=== PATIENT | female | born 1945 | race Caucasian/White ===

== ENCOUNTER 2018-10-27 14:56 | Observation (INO) ==
[2018-10-27] MEDS ORDERED: Famotidine PF Inj 20 MG/2 ML Vial IV.PUSH ONE (15:26)
[2018-10-27] MEDS ORDERED: Morphine Inj 4 MG/ML Vial IV.PUSH ONE (15:26)
[2018-10-27] MEDS ORDERED: Sod Chloride 0.9% Inj 1,000 ML IV.CONT SCH (15:30)
--- NOTE | 2018-10-27 15:31 | ED ---
HPI General Chief Complaint: Abdominal Pain Stated Complaint: Gallbladder Complaint Time Seen by Provider: 10/27/18 15:26 Source: patient Mode of arrival: ambulatory Limitations: no limitations History of Present Illness HPI narrative: The patient is a 73-year-old female who presents to the emergency department for abdominal. The patient states her symptoms started last night after she ate quesadillas and was walking in the cold air to performance at the local college. The patient states the pain is located in the epigastrium and radiates to the flanks and the back. The pain is constant, persistent, sharp, worse when she inhales cold air. The patient does complain of mild nausea, feeling "clammy ", and burping. The patient believes her gallbladder is inflamed. The patient states she had a similar episode 2 years ago and they thought it was cardiac, she had a cardiac catheterization which was negative per her report. The patient does have a previous history of hysterectomy, bilateral mastectomy, but denies any history of known gallstones or pancreatitis. The patient denies any associated dysuria, frequency, or urgency. The pain does occasionally radiate from the epigastrium up into the lower chest as well as the back. The patient denies any accompanying shortness of breath or cough. Symptoms are moderate to severe and constant. There are no current alleviating factors. MD complaint: Reports abdominal pain Onset (ago): day(s) Pain Consistency: constant Location: Reports RUQ and epigastric Severity: severe Severity scale (1-10): 8 Quality: Reports sharp Radiation: Reports back Migration to: Reports L flank and R flank Relieving factors: nothing Exacerbating factors: other Context: Reports history of similar episodes Associated symptoms: Reports nausea and other Related Data Patient : No Allergies Allergy/AdvReac Type Severity Reaction Status Date / Time amlodipine Allergy Mild unknown Verified 10/27/18 15:26 atorvastatin Allergy Mild unknown Verified 10/27/18 15:26 pravastatin Allergy Mild unknown Verified 10/27/18 15:26 scopolamine Allergy Mild Agitation Verified 10/27/18 15:26 simvastatin Allergy Mild unknown Verified 10/27/18 15:26 Review of Systems ROS: all other systems reviewed are negative [facility] Medical History Medical History Arthritis (Acute) COPD (chronic obstructive pulmonary disease) (Acute) Chronic fibrocystic breast disease (FCBD) in female (Acute) GERD (gastroesophageal reflux disease) (Acute) H/O: hysterectomy (Acute) Hypercholesterolemia (Acute) Surgical History Surgical History S/P mastectomy, bilateral (Acute) Social History Social History Substance History: No History of Abuse Smoking Status: Former smoker How Often Do You Have a Drink Containing Alcohol: Monthly or less Recent Travel in [facility] within the Last 8 Weeks: No Recent Out of Country Travel within the Last 8 Weeks: No Exam Narrative Exam Narrative: GENERAL: Awake, alert, pleasant 73-year-old female who appears her stated age and appears in moderate discomfort. SKIN: Focused skin assessment warm/dry. HEAD: Atraumatic. Normocephalic. EYES: Pupils equal and round. No scleral icterus. No injection or drainage. ENT: No nasal bleeding or discharge. Mucous membranes pink and moist. NECK: Trachea midline. No JVD. CARDIOVASCULAR: Regular rate and rhythm. No murmur appreciated. RESPIRATORY: No accessory muscle use. Clear to auscultation. Breath sounds equal bilaterally. GASTROINTESTINAL: Abdomen soft, mild epigastric and right upper quadrant tenderness. No guarding or rigidity. Back: No CVA tenderness. MUSCULOSKELETAL: No obvious deformities. No clubbing. No cyanosis. No edema. NEUROLOGICAL: Awake and alert. No obvious cranial nerve deficits. Motor grossly within normal limits. Normal speech. PSYCHIATRIC: Appropriate mood and affect; insight and judgment normal. Course Initial Documented Vital Signs Temperature 97.5 F L 10/27/18 15:07 Pulse Rate 63 10/27/18 15:07 Respiratory Rate 20 10/27/18 15:07 Blood Pressure 225/98 H 10/27/18 15:07 Pulse Oximetry 98 10/27/18 15:07 Last Documented Vital Signs Temperature 97.5 F L 10/27/18 15:07 Pulse Rate 66 10/27/18 19:40 Respiratory Rate 16 10/27/18 19:40 Blood Pressure 136/63 10/27/18 19:40 Pulse Oximetry 96 10/27/18 19:40 Medical Decision Making [facility] Narrative Medical decision making narrative: IV was established, labs are drawn and sent, and the patient was placed on cardiac telemetry monitoring and continuous pulse oximetry monitoring. EKG was ordered and interpreted. Chest x-ray was obtained. The patient received morphine, Zofran, and was placed on IV fluids. Ultrasound of the gallbladder was obtained. The patient was kept n.p.o. The patient's last meal was at 10 AM, breakfast. The patient's EKG was unremarkable , reveals normal sinus rhythm with no signs of depressions. Patient's lipase is normal. Chest x-ray was unremarkable. However, patient's troponin was elevated at 2.34. The patient was administered aspirin orally. The patient was placed on a heparin drip. The patient was reevaluated at 7:30 PM, her pain had resolved and blood pressure had improved to 130/80s. The patient will be admitted to the [facility], may benefit from cardiology evaluation. The patient states she had a negative cath several years ago after similar symptoms, however, troponin is elevated, possibly Prinzmetal angina versus hypertensive emergency. Medical Screen Exam Complete: Yes Emergency Medical Condition: Yes Differential Diagnosis Differential Diagnosis: Differential diagnosis includes cholecystitis, biliary colic, pancreatitis, gastritis, peptic ulcer disease, esophageal spasm, abdominal aortic aneurysm, dissection, pyelonephritis, nephrolithiasis, lower lobe pneumonia. Lab Data Lab results reviewed: Yes I reviewed the patient's lab results. Result diagrams: 10/27/18 17:35 10/27/18 17:35 Lab Results 10/27/18 10/27/18 10/27/18 Range/Units 17:35 17:35 17:35 WBC 8.9 (4.0-11.0) th/mm3 RBC 3.92 L (4.00-5.30) mil/mm3 Hgb 12.7 (11.6-15.3) gm/dL Hct 36.6 (35.0-46.0) % MCV 93.4 (80.0-100.0) fL MCH 32.4 (27.0-34.0) pg MCHC 34.7 (32.0-36.0) % RDW 12.9 (11.6-17.2) % Plt Count 259 (150-450) th/mm3 MPV 9.3 (7.0-11.0) fL Neut % (Auto) 82.4 H (16.0-70.0) % Lymph % (Auto) 12.9 (9.0-44.0) % [place] % (Auto) 3.3 (0.0-8.0) % Eos % (Auto) 0.8 (0.0-4.0) % Baso % (Auto) 0.6 (0.0-2.0) % Neut # (Auto) 7.3 (1.8-7.7) th/mm3 Lymph # (Auto) 1.1 (1.0-4.8) th/mm3 [place] # (Auto) 0.3 (0.0-0.9) th/mm3 Eos # (Auto) 0.1 (0.0-0.4) th/mm3 Baso # (Auto) 0.1 (0.0-0.2) th/mm3 WBC Differential . Differential Comment Auto diff final PT 10.7 (9.8-11.6) sec INR 1.1 Ratio APTT 24.3 (23.4-31.7) sec Sodium 139 (136-145) meq/L Potassium 4.7 (3.5-5.1) meq/L Chloride 104 (98-107) meq/L Carbon Dioxide 27.8 (21.0-32.0) meq/L Anion Gap 7 (5-15) meq/L BUN 27 H (7-18) mg/dL Creatinine 1.06 H (0.50-1.00) mg/dL Estimated GFR 51 L (>89) mL/min Random Glucose 107 H (74-106) mg/dL Lactic Acid (0.4-2.0) mmol/L Calcium 8.6 (8.5-10.1) mg/dL Magnesium 1.8 (1.5-2.5) mg/dL Total Bilirubin 0.7 (0.2-1.0) mg/dL AST 46 H (15-37) U/L ALT 29 (10-53) U/L Alkaline Phosphatase 80 (45-117) U/L Total Creatine Kinase 269 H (26-192) U/L CK-MB (CK-2) 14.2 H (0.5-3.6) ng/mL CK-MB (CK-2) % 5.3 H* (0.0-4.0) % Troponin I 2.34 H* (0.02-0.05) ng/mL Total Protein 7.6 (6.4-8.2) g/dL Albumin 3.9 (3.4-5.0) g/dL Lipase 132 (73-393) U/L 10/27/18 Range/Units 17:35 WBC (4.0-11.0) th/mm3 RBC (4.00-5.30) mil/mm3 Hgb (11.6-15.3) gm/dL Hct (35.0-46.0) % MCV (80.0-100.0) fL MCH (27.0-34.0) pg MCHC (32.0-36.0) % RDW (11.6-17.2) % Plt Count (150-450) th/mm3 MPV (7.0-11.0) fL Neut % (Auto) (16.0-70.0) % Lymph % (Auto) (9.0-44.0) % [place] % (Auto) (0.0-8.0) % Eos % (Auto) (0.0-4.0) % Baso % (Auto) (0.0-2.0) % Neut # (Auto) (1.8-7.7) th/mm3 Lymph # (Auto) (1.0-4.8) th/mm3 [place] # (Auto) (0.0-0.9) th/mm3 Eos # (Auto) (0.0-0.4) th/mm3 Baso # (Auto) (0.0-0.2) th/mm3 WBC Differential Differential Comment PT (9.8-11.6) sec INR Ratio APTT (23.4-31.7) sec Sodium (136-145) meq/L Potassium (3.5-5.1) meq/L Chloride (98-107) meq/L Carbon Dioxide (21.0-32.0) meq/L Anion Gap (5-15) meq/L BUN (7-18) mg/dL Creatinine (0.50-1.00) mg/dL Estimated GFR (>89) mL/min Random Glucose (74-106) mg/dL Lactic Acid 0.6 (0.4-2.0) mmol/L Calcium (8.5-10.1) mg/dL Magnesium (1.5-2.5) mg/dL Total Bilirubin (0.2-1.0) mg/dL AST (15-37) U/L ALT (10-53) U/L Alkaline Phosphatase (45-117) U/L Total Creatine Kinase (26-192) U/L CK-MB (CK-2) (0.5-3.6) ng/mL CK-MB (CK-2) % (0.0-4.0) % Troponin I (0.02-0.05) ng/mL Total Protein (6.4-8.2) g/dL Albumin (3.4-5.0) g/dL Lipase (73-393) U/L Imaging Data Radiologist's impression: Chest X-Ray 10/27/18 15:26 CONCLUSION: Stable chest appearance with no definite acute disease Gallbladder Ultrasound 10/27/18 15:26 CONCLUSION: 1. Cholelithiasis without definitive sonographic evidence for acute cholecystitis. 2. Nonspecific marginal pancreatic duct size. Abdomen/Pelvis CT 10/27/18 16:32 CONCLUSION: 1. Atherosclerotic changes in the aorta with dilatation and calcification. There is no focal aneurysm. 2. Moderate size apparent duodenal diverticulum containing an area of high density material. 3. Unremarkable gallbladder. 4. Moderate size retrocardiac hiatal hernia. 5. Grade 1 anterior spondylolisthesis of L4 on L5. ECG Data EKG Prior to Arrival: No Attestation: I personally reviewed and interpreted this ECG as follows: Interpretation: EKG reveals normal sinus rhythm with a rate of 75. No ischemic changes or ectopy noted. Discharge Plan Discharge Disposition Patient Disposition: 30 Still Patient Discharge Details Diagnosis: Non-ST elevation [place] (NSTEMI) Physicians Team ED Provider: Candido Knight Primary Care Provider: Nina King Status ED Status: Pending Admission
--- NOTE | 2018-10-27 16:19 | XR ---
EXAM DATE: 10/27/2018 4:05 PM EST AGE/SEX: 73 years / Female INDICATIONS: Chest pain. Right upper quadrant pain. CLINICAL DATA: This is the patient's initial encounter. Patient reports that signs and symptoms have been present for 1 day and indicates a pain score of 3/10. MEDICAL/SURGICAL HISTORY: None. None. COMPARISON: [facility] [place], CHEST SINGLE AP, 11/17/2015. . FINDINGS: A single AP view of the chest demonstrates the lungs to be symmetrically aerated without evidence of mass, infiltrate or effusion. The cardiomediastinal contours are unremarkable. Osseous structures a re intact. CONCLUSION: Stable chest appearance with no definite acute disease Electronically signed by: Jarrett Dotson MD 10/27/2018 4:18 PM EST
--- NOTE | 2018-10-27 16:32 | US ---
EXAM DATE: 10/27/2018 4:27 PM EST AGE/SEX: 73 years / Female INDICATIONS: Right upper quadrant pain. CLINICAL DATA: This is the patient's initial encounter. Patient reports that signs and symptoms have been present for 2 days and indicates a pain score of 6/10. MEDICAL/SURGICAL HISTORY: Chronic obstructive pulmonary disease. Gastroesophageal reflux disea se. Arthritis. FCBD. Hypercholesterolemia. Hysterectomy. Bilateral mastectomy. COMPARISON: No prior exams available for comparison. MEASUREMENTS: Liver:__ 15 cm. Common Bile Duct:__ 6mm. FINDINGS: Liver: Normal echotexture without focal lesion or ductal dilatation. Portal Vein: Hepatopedal flow seen in portal vein. Common Duct: No intraluminal mass or stone visualized. Gallbladder: 1.2 cm echogenic gallstone in the gallbladder. Gallbladder otherwise is mildly distende d without gallbladder wall thickening or pericholecystic fluid. No sonographic Amin sign. Pancreas: Mildly prominent pancreatic duct. Right Kidney: Normal echotexture and cortical thickness. No mass or hydronephrosis. Other: None. CONCLUSION: 1. Cholelithiasis without definitive sonographic evidence for acute cholecystitis. 2. Nonspecific marginal pancreatic duct size. Electronically signed by: Antonio Pelayo MD 10/27/2018 4:30 PM EST
[2018-10-27 17:56] LABS: Baso # (Auto) 0.1 th/mm3 (0.0-0.2); Baso % (Auto) 0.6 % (0.0-2.0); Eos # (Auto) 0.1 th/mm3 (0.0-0.4); Eos % (Auto) 0.8 % (0.0-4.0); Hematocrit 36.6 % (35.0-46.0); Hemoglobin 12.7 gm/dL (11.6-15.3); Lymph # (Auto) 1.1 th/mm3 (1.0-4.8); Lymph % (Auto) 12.9 % (9.0-44.0); Mean Corpuscular HGB Conc 34.7 % (32.0-36.0); Mean Corpuscular Hemoglobin 32.4 pg (27.0-34.0); Mean Corpuscular Volume 93.4 fL (80.0-100.0); Mean Platelet Volume 9.3 fL (7.0-11.0); Mono # (Auto) 0.3 th/mm3 (0.0-0.9); Mono % (Auto) 3.3 % (0.0-8.0); Neut # (Auto) 7.3 th/mm3 (1.8-7.7); Neut % (Auto) 82.4 % (16.0-70.0); Platelet Count 259 th/mm3 (150-450); Red Blood Count 3.92 mil/mm3 (4.00-5.30); Red Cell Distribution Width 12.9 % (11.6-17.2); White Blood Count 8.9 th/mm3 (4.0-11.0)
[2018-10-27 18:08] LABS: Activated Partial Thrombo Time 24.3 sec (23.4-31.7); INR 1.1 Ratio; Prothrombin Time 10.7 sec (9.8-11.6)
[2018-10-27 18:29] LABS: Alanine Aminotransferase 29 U/L (10-53); Albumin 3.9 g/dL (3.4-5.0); Anion Gap 7 meq/L (5-15); Aspartate Aminotransferase 46 U/L (15-37); Blood Urea Nitrogen 27 mg/dL (7-18); Calcium 8.6 mg/dL (8.5-10.1); Carbon Dioxide 27.8 meq/L (21.0-32.0); Chloride 104 meq/L (98-107); Glomerular Filtration Rate 51 mL/min (>89); Glucose,Random 107 mg/dL (74-106); Lipase 132 U/L (73-393); Magnesium 1.8 mg/dL (1.5-2.5); Sodium 139 meq/L (136-145)
[2018-10-27 18:32] LABS: Potassium 4.7 meq/L (3.5-5.1)
[2018-10-27 18:41] LABS: Alkaline Phosphatase 80 U/L (45-117); Creatine Kinase 269 U/L (26-192); Total Protein 7.6 g/dL (6.4-8.2)
[2018-10-27 19:03] LABS: Troponin I 2.34 ng/mL (0.02-0.05)
[2018-10-27 19:16] LABS: Creatine Kinase MB 14.2 ng/mL (0.5-3.6)
[2018-10-27 19:28] LABS: CKMB Percent 5.3 % (0.0-4.0)
[2018-10-27] MEDS ORDERED: Heparin Drip 25,000 UNIT/250 ML BAG IV.CONT PRN (19:41)
[2018-10-27] MEDS ORDERED: Heparin 10,000 UNITS/10 ML Vial (for IV use) IV.PUSH STA (19:41)
--- NOTE | 2018-10-27 19:43 | CT ---
EXAM DATE: 10/27/2018 7:17 PM EST AGE/SEX: 73 years / Female INDICATIONS: Epigastric pain. Evaluate for abdominal aortic aneurysm. CLINICAL DATA: This is the patient's initial encounter. Patient reports that signs and symptoms have been present for 1 day and indicates a pain score of 10/10. MEDICAL/SURGICAL HISTORY: Chronic obstructive pulmonary disease. Gastroesophageal reflux disea se. Fibrocystic breast disease. Hysterectomy. ORAL CONTRAST: No oral contrast ingested. RADIATION DOSE: 14.66 CTDI (mGy) COMPARISON: No prior exams available for comparison. TECHNIQUE: Multiple contiguous axial images were obtained through the abdomen and pelvis following b olus infusion of 70 ml Omnipaque 350 (iohexol) nonionic water-soluble contrast as a single exam dos e. No oral contrast ingested. Using automated exposure control and adjustment of the mA and/or kV ac cording to patient size, radiation dose was kept as low as reasonably achievable to obtain optimal di agnostic quality images. DICOM format image data is available electronically for review and comparis on. FINDINGS: Lower Lungs: The visualized lower lungs are clear. Liver: The liver has a homogeneous density without space-occupying lesion. There is no dilation of th e biliary tree. There is mild hepatic steatosis. The gallbladder is unremarkable. . Spleen: Homogeneous density without enlargement. Pancreas: Unremarkable without mass or calcification. Kidneys: Normal in size and shape. No evidence of mass or hydronephrosis. Adrenal Glands: Unremarkable. Aorta: Atherosclerotic changes are noted in the aorta with mild dilatation and calcification. There is no focal aneurysm. Bowel/Mesentery: No oral contrast was given limiting the sensitivity of the exam. There is a moderate size retrocardiac hiatal hernia. There is apparent moderate size duodenal diverticulum. A portion th is contains high density material The bowel loops are grossly unremarkable. The cecum and sigmoid col on have a normal configuration. Abdominal Wall: Intact. Retroperitoneum: No evidence of adenopathy in the retrocrural, para-aortic, or deep pelvic regions. Bladder: Contours are smooth. Reproductive Organs: No abnormal masses or calcifications seen. Inguinal: The inguinal region is unremarkable without evidence of adenopathy. Bony Structures: There is a grade 1 anterior spondylolisthesis of L4 on L5 of approximately 6 mm. Th e bony structures are intact in appearance with scoliosis, osteopenia and degenerative changes. CONCLUSION: 1. Atherosclerotic changes in the aorta with dilatation and calcification. There is no focal aneurys m. 2. Moderate size apparent duodenal diverticulum containing an area of high density material. 3. Unremarkable gallbladder. 4. Moderate size retrocardiac hiatal hernia. 5. Grade 1 anterior spondylolisthesis of L4 on L5. Electronically signed by: Mino Ridley MD 10/27/2018 7:42 PM EST
--- NOTE | 2018-10-27 21:19 | P.HP ---
History of Present Illness Service: [facility] Adult med Primary Care Physician: Nina King MD Chief Complaint: abd pain..cold air induced History of Present Illness: The patient is a 73-year-old female who presents to the emergency department for abdominal pain. The patient states her symptoms started last night after she ate quesadillas and was walking in the cold air to view a performance at the local college. Pain resolved after a few hours and after taking antacids and was lying in bed at home last night. She was pain-free today and went to have her hair done at a local salon when the pain resumed after the door of the salon had been opened allowing cold air to come into the area where she was sitting. The patient states the pain is located in the epigastrium and radiates to the flanks and the back. The pain is constant, persistent, sharp, worse when she inhales cold air. Seems to improve when she is in warm environment. The patient does complain of mild nausea, feeling "clammy ", and burping often. The patient believes her gallbladder may be inflamed. The patient states she had a similar episode 3 years ago and they thought it was cardiac as she had elevated troponins at the time, she had a cardiac catheterization in Oct 2015 which was basically negative (mild dz 20-30 % in RCA). The patient does have a previous history of hysterectomy, bilateral mastectomy, but denies any history of known gallstones or pancreatitis. Doesn' t drink EtOH regularly. The patient denies any associated dysuria, frequency, or urgency. The pain does occasionally radiate from the epigastrium up into the lower chest as well and the mid back. The patient denies any accompanying shortness of breath or cough. Symptoms are moderate to severe and constant. There are no current alleviating factors. ER eval noted for essentially neg acute findings on GB u/s and CT, however, her trop is + at 2.3. It is also noted that her BP was quite high on arrival with SBPs in 200s. Her BP has since normalized, she is warm under the blankets in her bed and has no pain whatsoever now. SH Retired [employer] , 2 grandchildren live with her; other family in area; 2017 No tobacco in 2 yrs, but smoked 4-5 cigarettes/d for 50 yr prior No illicits - Diagnosis (1) Troponin level elevated (2) GERD (gastroesophageal reflux disease) (3) Hypercholesterolemia Inpatient Certification: I certify that the inpatient services were ordered in accordance with Medicare regulations governing the order. This includes certification that hospital inpatient services are reasonable and necessary and in the case of services not specified as inpatient-only under 42 CFR 419.22(n), that they are appropriately provided as inpatient services in accordance to with the 2-midnight benchmark under 43 CFR 412.3(e) Review of Systems Constitutional: Denies anorexia, Denies body ache(s), Denies chills, Denies daytime sleepiness, Denies excessive sweating, Denies fatigue, Denies fever(s), Denies headache(s), Denies increased appetite, Denies lack of energy, Denies malaise, Denies night sweats, Denies weakness, Denies weight gain, Denies weight loss, Denies other Eyes: Denies blind spots, Denies blurry vision, Denies bulging eyes, Denies change in vision, Denies double vision, Denies discharge, Denies dry eyes, Denies floaters, Denies irritation, Denies itchy eyes, Denies loss of vision, Denies pain, Denies requires corrective lenses, Denies sensitivity to light, Denies other Ears, Nose, Mouth, and Throat: Denies abnormal hearing, Denies bleeding gums, Denies bad breath, Denies change in voice, Denies dental pain, Denies difficulty swallowing, Denies dizziness, Denies dry mouth, Denies ear discharge , Denies ear pain, Denies facial pain, Denies headache(s), Denies hearing loss, Denies hoarseness, Denies lip swelling, Denies nosebleed, Denies mouth lesions, Denies mouth pain, Denies nasal congestion, Denies nasal discharge, Denies nasal obstruction, Denies nasal trauma, Denies neck lump, Denies neck pain, Denies nose pain, Denies pain with swallowing, Denies poor balance, Denies post nasal drip, Denies ringing in the ears, Denies sinus pain, Denies sinus pressure , Denies sore throat, Denies throat swelling, Denies tongue swelling, Denies other Cardiovascular: Denies chest pain, Denies chest pain at rest, Denies chest pain with activity, Denies excessive sweating, Denies fainting, Denies fast heart rate, Denies foot swelling, Denies generalized swelling, Denies irregular heart rhythm, Denies leg pain with activity, Denies leg sores, Denies leg swelling, Denies lightheadedness, Denies radiating jaw, neck or arm pain, Denies rapid, pounding, or irregular heartbeat, Denies shortness of breath, Denies shortness of breath with activity, Denies shortness of breath when lying down, Denies shortness of breath causing sudden awakening, Denies slow heart rate, Denies other Respiratory: Denies change in phlegm color, Denies chest congestion, Denies cough, Denies coughing up blood, Denies excessive phlegm production, Denies pain on inspiration, Denies pain with cough, Denies shortness of breath, Denies shortness of breath with activity, Denies snoring, Denies stridor, Denies wheezing, Denies other Gastrointestinal: Reports abdominal pain, Reports belching, Reports bloating, Reports feeling full early, Reports heartburn, Reports nausea, Denies black, tarry stools, Denies bright, red blood in stools, Denies change in bowel habits , Denies constant urge to pass stool, Denies change in stools, Denies coffee ground vomit, Denies constipation, Denies cramping, Denies difficulty swallowing , Denies excessive passing of gas, Denies incontinent of stools, Denies loose stools, Denies pain with swallowing, Denies vomiting, Denies vomiting blood, Denies other Musculoskeletal: Reports joint pain, Denies abnormal walking, Denies back pain, Denies body aches, Denies decreased muscle mass, Denies deformity, Denies joint swelling, Denies limited joint movement, Denies loss of height, Denies muscle cramps, Denies muscle weakness, Denies neck pain, Denies numbness, Denies radiating pain into limb, Denies stiffness, Denies tingling, Denies other Psychiatric: Reports anxiety, Reports depression, Denies abnormal sleep pattern , Denies behavioral changes, Denies change in appetite, Denies change in sex drive, Denies confusion, Denies difficulty concentrating, Denies hearing things others do not hear, Denies hopelessness, Denies irritability, Denies lack of enjoyment, Denies memory loss, Denies mood swings, Denies panic attacks, Denies paranoia, Denies seeing things others do not see, Denies sensing things others do not sense, Denies tactile hallucinations, Denies thoughts of hurting/killing others, Denies thoughts of hurting/killing yourself, Denies other PMFSH - History History Provided By: Patient - Medical History Medical History: Medical History (Last Updated 10/27/18 @ 21:12 by Arnaldo Licea MD, PhD) COPD (chronic obstructive pulmonary disease) (Acute) Hypercholesterolemia (Acute) GERD (gastroesophageal reflux disease) (Acute) History of left heart catheterization Onset Date: ~10/2015 Arthritis Chronic fibrocystic breast disease (FCBD) in female H/O: hysterectomy - Surgical History Surgical History: Surgical History (Last Updated 10/27/18 @ 15:29 by Cielo Fitch RN) S/P mastectomy, bilateral - Family History Family History: Family History (Last Updated 10/27/18 @ 21:08 by Arnaldo Licea MD, PhD) Sister Hiatal hernia - Social History I have reviewed the patient's Social History: Yes - Tobacco History Second Hand Smoke Exposure: No Tobacco Use In Past 30 Days: No Smoking Status: Former smoker Cigarettes Per Day: 4 Years Smoked: 48 Smoking End Date: 2015 - Alcohol History How Often Do You Have a Drink Containing Alcohol: Monthly or less - Substance Use History Substance History: No History of Abuse - Travel History Recent Travel in the [place] Within the Last 8 Weeks: No Recent Travel Out of the Country Within the Last 8 Weeks: No - Immunization History Tetanus Immunization: Unsure Medications and Allergies Active Medications: Active Medications Heparin Sodium (Porcine) (Heparin Inj) 2,500 units IV.PUSH UNSCH PRN PRN Reason: aPTT 25-39 Sodium Chloride (Ns Inj) 1,000 mls @ 125 mls/hr IV.CONT .Q8H LUCIEN Stop: 10/27/18 23:29 Last Admin: 10/27/18 15:38 Dose: 125 mls/hr Heparin Sodium/Dextrose (Heparin/D5w 25,000 U/250 Ml) 25,000 unit in 250 mls @ 0 mls/hr IV.CONT TITRATE PRN; Protocol PRN Reason: Per Protocol Last Admin: 10/27/18 20:08 Dose: 800 units/hr, 8 mls/hr Sodium Chloride (Ns Flush) 2 ml IV.FLUSH PRN PRN PRN Reason: FLUSH AFTER USING IV ACCESS Allergies Allergy/AdvReac Type Severity Reaction Status Date / Time amlodipine Allergy Mild unknown Verified 10/27/18 15:26 atorvastatin Allergy Mild unknown Verified 10/27/18 15:26 pravastatin Allergy Mild unknown Verified 10/27/18 15:26 scopolamine Allergy Mild Agitation Verified 10/27/18 15:26 simvastatin Allergy Mild unknown Verified 10/27/18 15:26 Home Medications Medication Instructions Recorded Confirmed Type diclofenac sodium 75 mg PO BID 10/27/18 10/27/18 History escitalopram oxalate 5 mg PO DAILY 10/27/18 10/27/18 History omeprazole 40 mg PO DAILY 10/27/18 10/27/18 History tramadol 50 mg PO Q4-6H PRN 10/27/18 10/27/18 History Exam Vital signs: Vital Signs 10/27/18 15:07 10/27/18 15:31 10/27/18 19:40 Temperature 97.5 F L Pulse Rate 63 65 66 Respiratory Rate 20 18 16 Blood Pressure 225/98 H 230/106 H 136/63 Pulse Oximetry 98 98 96 Intake & Output 10/27/18 10/27/18 10/28/18 06:59 18:59 06:59 Weight 68.039 kg Narrative: GENERAL: Obese, no acute distress, cooperative and pleasant. Alert and oriented. SKIN: Warm and dry. HEAD: Atraumatic. Normocephalic. EYES: Pupils equal and round. No scleral icterus. No injection or drainage. Corrective eyewear in place. ENT: No nasal bleeding or discharge. Mucous membranes pink and moist. NECK: Trachea midline. No JVD. CARDIOVASCULAR: Regular rate and rhythm. No murmurs appreciated. RESPIRATORY: No accessory muscle use. Clear to auscultation. Breath sounds equal bilaterally. GASTROINTESTINAL: Abdomen soft, non-tender, nondistended. Hepatic and splenic margins not palpable. No guarding or rebound. Bowel sounds normal. MUSCULOSKELETAL: Extremities without clubbing, cyanosis, or edema. No obvious deformities. NEUROLOGICAL: Awake and alert. No obvious cranial nerve deficits. Motor grossly within normal limits. Five out of 5 muscle strength in the arms and legs. Normal speech. PSYCHIATRIC: Appropriate mood and affect; insight and judgment normal. Results - Labs CBC & Chem 7: 10/27/18 17:35 10/27/18 17:35 Labs: Laboratory Results - last 24 hr 10/27/18 10/27/18 10/27/18 17:35 17:35 17:35 WBC 8.9 RBC 3.92 L Hgb 12.7 Hct 36.6 MCV 93.4 MCH 32.4 MCHC 34.7 RDW 12.9 Plt Count 259 MPV 9.3 Neut % (Auto) 82.4 H Lymph % (Auto) 12.9 [place] % (Auto) 3.3 Eos % (Auto) 0.8 Baso % (Auto) 0.6 Neut # (Auto) 7.3 Lymph # (Auto) 1.1 [place] # (Auto) 0.3 Eos # (Auto) 0.1 Baso # (Auto) 0.1 WBC Differential . Differential Comment Auto diff final PT 10.7 INR 1.1 APTT 24.3 Sodium 139 Potassium 4.7 Chloride 104 Carbon Dioxide 27.8 Anion Gap 7 BUN 27 H Creatinine 1.06 H Estimated GFR 51 L Random Glucose 107 H Lactic Acid Calcium 8.6 Magnesium 1.8 Total Bilirubin 0.7 AST 46 H ALT 29 Alkaline Phosphatase 80 Total Creatine Kinase 269 H CK-MB (CK-2) 14.2 H CK-MB (CK-2) % 5.3 H* Troponin I 2.34 H* Total Protein 7.6 Albumin 3.9 Lipase 132 10/27/18 17:35 WBC RBC Hgb Hct MCV MCH MCHC RDW Plt Count MPV Neut % (Auto) Lymph % (Auto) [place] % (Auto) Eos % (Auto) Baso % (Auto) Neut # (Auto) Lymph # (Auto) [place] # (Auto) Eos # (Auto) Baso # (Auto) WBC Differential Differential Comment PT INR APTT Sodium Potassium Chloride Carbon Dioxide Anion Gap BUN Creatinine Estimated GFR Random Glucose Lactic Acid 0.6 Calcium Magnesium Total Bilirubin AST ALT Alkaline Phosphatase Total Creatine Kinase CK-MB (CK-2) CK-MB (CK-2) % Troponin I Total Protein Albumin Lipase - Imaging Impressions Chest X-Ray 10/27/18 15:26 CONCLUSION: Stable chest appearance with no definite acute disease Gallbladder Ultrasound 10/27/18 15:26 CONCLUSION: 1. Cholelithiasis without definitive sonographic evidence for acute cholecystitis. 2. Nonspecific marginal pancreatic duct size. Abdomen/Pelvis CT 10/27/18 16:32 CONCLUSION: 1. Atherosclerotic changes in the aorta with dilatation and calcification. There is no focal aneurysm. 2. Moderate size apparent duodenal diverticulum containing an area of high density material. 3. Unremarkable gallbladder. 4. Moderate size retrocardiac hiatal hernia. 5. Grade 1 anterior spondylolisthesis of L4 on L5. Caprini VTE Risk Assessment Caprini VTE Risk Assessment: Moderate/High Risk (score >= 2) Caprini Risk Assessment Model: Point Value = 1 Point Value = 2 Point Value = 3 Point Value = 5 Age 41-60 Minor surgery BMI > 25 kg/m2 Swollen legs Varicose veins or History of unexplained or recurrent spontaneous Oral contraceptives or hormone replacement Sepsis (< 1 month) Serious lung disease, including pneumonia (< 1 month) Abnormal pulmonary function Acute myocardial infarction Congestive heart failure (< 1 month) History of inflammatory bowel disease Medical patient at bed rest Age 61-74 Arthroscopic surgery Major open surgery (> 45 min) Laparoscopic surgery (> 45 min) Malignancy Confined to bed (> 72 hours) Immobilizing plaster cast Central venous access Age >= 75 History of VTE Family history of VTE Factor V Leiden Prothrombin [id number] Lupus anticoagulant Anticardiolipin antibodies Elevated serum homocysteine Heparin-induced thrombocytopenia Other congenital or acquired thrombophilia Stroke (< 1 month) Elective arthroplasty Hip, pelvis, or leg fracture Acute spinal cord injury (< 1 month) Prophylaxis Regimen: Total Risk Factor Score Risk Level Prophylaxis Regimen 0-1 Low Early ambulation 2 Moderate Order ONE of the following: *Sequential Compression Device (SCD) *Heparin 5000 units SQ BID 3-4 Higher Order ONE of the following medications: *Heparin 5000 units SQ TID *Enoxaparin/Lovenox 40 mg SQ daily (WT < 150 kg, CrCl > 30 mL/min) *Enoxaparin/Lovenox 30 mg SQ daily (WT < 150 kg, CrCl > 10-29 mL/min) *Enoxaparin/Lovenox 30 mg SQ BID (WT < 150 kg, CrCl > 30 mL/min) AND/OR *Sequential Compression Device (SCD) 5 or more Highest Order ONE of the following medications: *Heparin 5000 units SQ TID (Preferred with Epidurals) *Enoxaparin/Lovenox 40 mg SQ daily (WT < 150 kg, CrCl > 30 mL/min) *Enoxaparin/Lovenox 30 mg SQ daily (WT < 150 kg, CrCl > 10-29 mL/min) *Enoxaparin/Lovenox 30 mg SQ BID (WT < 150 kg, CrCl > 30 mL/min) AND *Sequential Compression Device (SCD) Assessment and Plan - Assessment (1) Troponin level elevated Code(s): R74.8 - Abnormal levels of other serum enzymes Status: Acute Plan: Questionable etiology. EKGs do not have typical cardiac injury pattern. Seems that this may be associated with cold air induced vasospasm, Prinzmetal's angina or true hypertensive emergency. Given her relatively benign appearing heart catheterization 3 years ago, it is unlikely that she has significant multivessel disease at this point. It is noted she has hypercholesterolemia and that she cannot tolerate statin medications. We will keep the patient overnight, rule her out and have cardiology see her. She has been placed on heparin drip. Have placed a call to Dr. Ricci. She is pain-free currently. It is also unclear what her baseline troponin levels are when she does not have the pain presentation noted above. (2) GERD (gastroesophageal reflux disease) Code(s): K21.9 - Gastro-esophageal reflux disease without esophagitis Status: Chronic Plan: Provide PPI. (3) Hypercholesterolemia Code(s): E78.00 - Pure hypercholesterolemia, unspecified Status: Chronic Plan: Patient cannot tolerate statins. She was placed on Lovasa in the past and I am not sure how well she tolerated at either or if it would be of much benefit at this point. - Plan Code Status: full Discussed Condition With: Patient, her son and ER provider. Call placed to Dr. Ricci.
[2018-10-27] MEDS ORDERED: Sodium Chloride 0.9% 2 ML Flush PRN IV.FLUSH (21:31)
[2018-10-27 23:10] LABS: Troponin I 2.3 ng/mL (0.02-0.05)
[2018-10-27 23:22] LABS: Creatine Kinase MB 11.8 ng/mL (0.5-3.6)
[2018-10-27 23:24] LABS: CKMB Percent 5.3 % (0.0-4.0)
[2018-10-28 01:18] LABS: Bilirubin,Urine Negative (Negative); Clarity,Urine Clear (Clear); Color,Urine Yellow (Yellw/Straw); Glucose,Urine (UA) Negative (Negative); Leukocyte Esterase,Urine Negative (Negative); Mucus,Urine Few /lpf (Occasional); Nitrite,Urine Negative (Negative); Squamous Epithelial Cell,Urine 13 /hpf (0-5); Urobilinogen,Urine 4 or Greater mg/dL (Less than 2)
[2018-10-28] MEDS ORDERED: Heparin 10,000 UNITS/10 ML Vial (for IV use) IV.PUSH PRN ×2 (01:41→03:28)
[2018-10-28 04:26] LABS: Hematocrit 35.3 % (35.0-46.0); Hemoglobin 12.1 gm/dL (11.6-15.3); Mean Corpuscular HGB Conc 34.2 % (32.0-36.0); Mean Corpuscular Hemoglobin 32.3 pg (27.0-34.0); Mean Corpuscular Volume 94.5 fL (80.0-100.0); Mean Platelet Volume 9.3 fL (7.0-11.0); Platelet Count 252 th/mm3 (150-450); Red Blood Count 3.74 mil/mm3 (4.00-5.30); Red Cell Distribution Width 13.3 % (11.6-17.2); White Blood Count 8.3 th/mm3 (4.0-11.0)
[2018-10-28 04:56] LABS: Chol/HDL Ratio 6.45 Ratio; HDL Cholesterol 41.8 mg/dL (40.0-60.0)
[2018-10-28 05:03] LABS: Troponin I 1.45 ng/mL (0.02-0.05)
[2018-10-28 05:15] LABS: CKMB Percent 3.9 % (0.0-4.0); Creatine Kinase MB 11.6 ng/mL (0.5-3.6)
--- NOTE | 2018-10-28 07:55 | P.CONCA ---
History of Present Illness Primary Care Provider: Nina King MD Chief Complaint: abd pain..cold air induced History of Present Illness: 73-year-old female with mild nonobstructive CAD by [facility] 2015, HLD with statin intolerance, GERD, depression. The patient presented for chest pain. The patient states that she has had short episodes of right chest cramping off and on for since the 80s; she feels these episodes seem to be brought on by the cold. She states that 2 nights ago she was walking out of a restaurant across the street to the theater and when she went out into the cold she developed severe sharp chest discomfort on the right side with associated belching, took Tums and symptoms resolved after about 2 hours. 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 The patient reports similar symptoms twice in the past once about 15 years ago and once in 2014. In 2014 with similar symptoms she had elevation of troponins with heart catheterization showing 20-30% RCA and 10% LAD daily. She again has had elevation of troponins 2.3->1.4. Her EKG shows NSR with no ischemic changes. Review of Systems All other systems reviewed negative except as stated in HPI PMFSH - History History Provided By: Patient, Medical Record - Medical History Medical History: Medical History (Last Updated 10/27/18 @ 21:12 by Arnaldo Licea MD, PhD) COPD (chronic obstructive pulmonary disease) (Acute) Hypercholesterolemia (Chronic) GERD (gastroesophageal reflux disease) (Chronic) History of left heart catheterization Onset Date: ~10/2015 Arthritis Chronic fibrocystic breast disease (FCBD) in female H/O: hysterectomy - Surgical History Surgical History: Surgical History (Last Updated 10/27/18 @ 15:29 by Cielo Fitch RN) S/P mastectomy, bilateral - Family History Family History: Family History (Last Updated 10/27/18 @ 21:08 by Arnaldo Licea MD, PhD) Sister Hiatal hernia - Tobacco History Second Hand Smoke Exposure: No Tobacco Use In Past 30 Days: No Smoking Status: Former smoker Cigarettes Per Day: 4 Years Smoked: 50 Smoking End Date: 2015 - Alcohol History How Often Do You Have a Drink Containing Alcohol: Monthly or less - Substance Use History Substance History: No History of Abuse - Travel History Recent Travel in the [place] Within the Last 8 Weeks: No Recent Travel Out of the Country Within the Last 8 Weeks: No - Immunization History Tetanus Immunization: <5 Years Hx Influenza Vaccine This Season: Yes Medications and Allergies Active Medications: Active Medications Aspirin (Ecotrin) 81 mg PO DAILY [facility] Heparin Sodium (Porcine) (Heparin Inj) 2,500 units IV.PUSH UNSCH PRN PRN Reason: aPTT 25-39 Heparin Sodium (Porcine) (Heparin Inj) 5,000 units IV.PUSH UNSCH PRN PRN Reason: aPTT < 25 Heparin Sodium/Dextrose (Heparin/D5w 25,000 U/250 Ml) 25,000 unit in 250 mls @ 0 mls/hr IV.CONT TITRATE PRN; Protocol PRN Reason: Per Protocol Last Admin: 10/27/18 20:08 Dose: 800 units/hr, 8 mls/hr Nitroglycerin (Nitrostat Sl) 0.4 mg SL Q5M PRN PRN Reason: CHEST PAIN Pantoprazole Sodium (Protonix) 40 mg PO DAILY [facility] Last Admin: 10/27/18 23:55 Dose: 40 mg Sodium Chloride (Ns Flush) 2 ml IV.FLUSH BID [facility] Sodium Chloride (Ns Flush) 2 ml IV.FLUSH PRN PRN PRN Reason: FLUSH AFTER USING IV ACCESS Temazepam (Restoril) 7.5 mg PO HS PRN PRN Reason: INSOMNIA Allergies Allergy/AdvReac Type Severity Reaction Status Date / Time amlodipine Allergy Mild unknown Verified 10/27/18 15:26 atorvastatin Allergy Mild unknown Verified 10/27/18 15:26 pravastatin Allergy Mild unknown Verified 10/27/18 15:26 scopolamine Allergy Mild Agitation Verified 10/27/18 15:26 simvastatin Allergy Mild unknown Verified 10/27/18 15:26 Home Medications Medication Instructions Recorded Confirmed Type diclofenac sodium 75 mg PO BID 10/27/18 10/27/18 History escitalopram oxalate 5 mg PO DAILY 10/27/18 10/27/18 History omeprazole 40 mg PO DAILY 10/27/18 10/27/18 History tramadol 50 mg PO Q4-6H PRN 10/27/18 10/27/18 History Exam Vital signs: Vital Signs 10/27/18 15:07 10/27/18 15:31 10/27/18 19:40 Temperature 97.5 F L Pulse Rate 63 65 66 Respiratory Rate 20 18 16 Blood Pressure 225/98 H 230/106 H 136/63 Pulse Oximetry 98 98 96 10/27/18 21:48 10/27/18 21:55 10/27/18 22:05 Temperature 97.7 F Pulse Rate 67 71 Respiratory Rate 16 16 Blood Pressure 178/72 H 163/73 H Pulse Oximetry 96 95 95 10/28/18 00:10 10/28/18 04:00 10/28/18 05:57 Temperature 97.7 F 97.9 F Pulse Rate 68 68 69 Respiratory Rate 16 16 Blood Pressure 124/69 139/66 Pulse Oximetry 91 L 95 Intake & Output 10/27/18 10/28/18 10/28/18 18:59 06:59 18:59 Intake Total 1480 / 1480 Output Total 450 / 450 Balance 1030 / 1030 Weight 150 lb 177 lb 0.499 oz Intake: IV 1000 / 1000 NS Inj 1,000 ML @ 125 mls/hr IV 1000 / 1000 .CONT .Q8H [facility] Rx#:[id number] Oral 480 / 480 Output: Urine 450 / 450 Other: # Bowel Movements 0 Narrative: GENERAL: Well-developed well-nourished. Obese. In no acute distress. NECK: No carotid bruits. No JVD. CARDIOVASCULAR: Regular rate and rhythm. No murmur appreciated. RESPIRATORY: No accessory muscle use. Clear to auscultation. Breath sounds equal bilaterally. MUSCULOSKELETAL: No clubbing or cyanosis. No edema. NEUROLOGICAL: Awake and alert. Normal speech. Results 10/28/18 03:49 10/27/18 17:35 Cardiac Enzymes 10/27/18 10/27/18 10/28/18 Range/Units 17:35 21:45 03:49 AST 46 H (15-37) U/L CK-MB (CK-2) 14.2 H 11.8 H 11.6 H (0.5-3.6) ng/mL Troponin I 2.34 H* 2.30 H* 1.45 H* D (0.02-0.05) ng/mL Coagulation 10/27/18 10/28/18 Range/Units 17:35 01:06 PT 10.7 (9.8-11.6) sec APTT 24.3 67.0 H D (23.4-31.7) sec Lipids 10/28/18 Range/Units 03:49 Triglycerides 225 H (42-150) mg/dL Cholesterol 270 H (120-200) mg/dL HDL Cholesterol 41.8 (40.0-60.0) mg/dL Cholesterol/HDL Ratio 6.45 Ratio CBC 10/27/18 10/28/18 Range/Units 17:35 03:49 WBC 8.9 8.3 (4.0-11.0) th/mm3 RBC 3.92 L 3.74 L (4.00-5.30) mil/mm3 Hgb 12.7 12.1 (11.6-15.3) gm/dL Hct 36.6 35.3 (35.0-46.0) % Plt Count 259 252 (150-450) th/mm3 Neut # (Auto) 7.3 (1.8-7.7) th/mm3 Lymph # (Auto) 1.1 (1.0-4.8) th/mm3 Assumption # (Auto) 0.3 (0.0-0.9) th/mm3 Eos # (Auto) 0.1 (0.0-0.4) th/mm3 Baso # (Auto) 0.1 (0.0-0.2) th/mm3 Comprehensive Metabolic Panel 10/27/18 Range/Units 17:35 Sodium 139 (136-145) meq/L Potassium 4.7 (3.5-5.1) meq/L Chloride 104 (98-107) meq/L Carbon Dioxide 27.8 (21.0-32.0) meq/L BUN 27 H (7-18) mg/dL Creatinine 1.06 H (0.50-1.00) mg/dL Calcium 8.6 (8.5-10.1) mg/dL AST 46 H (15-37) U/L ALT 29 (10-53) U/L Alkaline Phosphatase 80 (45-117) U/L Total Protein 7.6 (6.4-8.2) g/dL Albumin 3.9 (3.4-5.0) g/dL Intake and Output 10/27/18 10/28/18 10/28/18 22:59 06:59 14:59 Intake Total 1480 / 1480 Output Total 450 / 450 Balance 1030 / 1030 Intake: IV 1000 / 1000 NS Inj 1,000 ML @ 125 mls/hr IV 1000 / 1000 .CONT .Q8H [facility] Rx#:[id number] Oral 480 / 480 Output: Urine 450 / 450 Other: # Bowel Movements 0 Weight 177 lb 14.609 oz 177 lb 0.499 oz - Imaging and Cardiology Imaging: Impressions Chest X-Ray 10/27/18 15:26 CONCLUSION: Stable chest appearance with no definite acute disease Gallbladder Ultrasound 10/27/18 15:26 CONCLUSION: 1. Cholelithiasis without definitive sonographic evidence for acute cholecystitis. 2. Nonspecific marginal pancreatic duct size. Abdomen/Pelvis CT 10/27/18 16:32 CONCLUSION: 1. Atherosclerotic changes in the aorta with dilatation and calcification. There is no focal aneurysm. 2. Moderate size apparent duodenal diverticulum containing an area of high density material. 3. Unremarkable gallbladder. 4. Moderate size retrocardiac hiatal hernia. 5. Grade 1 anterior spondylolisthesis of L4 on L5. Assessment and Plan - Plan 73-year-old female with mild nonobstructive CAD by [facility] 2014, HLD with statin intolerance, GERD, depression who presented for chest pain. Chest pain with troponin elevation: Troponin downtrending. No ischemic EKG changes. Relatively recent LHC with minimal nonobstructive CAD. Symptoms suspicious for Prinzmetal angina. Adverse reaction to amlodipine. Start Imdur 30mg QD with plans to uptitrate as outpatient as tolerated. Check Lexiscan today to rule out ischemia. Discussed Condition With: Patient, Dr. Hill
[2018-10-28] MEDS ORDERED: Isosorbide Mononitrate 30 MG ER 24HR Tablet (Imdur) PO SCH (08:31)
[2018-10-28] MEDS ORDERED: Sodium Chloride 0.9% 2 ML Flush BID IV.FLUSH SCH (09:00)
[2018-10-28] MEDS ORDERED: amLODIPine 5 MG Tablet PO SCH (10:00)
[2018-10-28] MEDS ORDERED: Regadenoson Inj 0.4 MG/5 ML Syringe IV.PUSH ONE (10:39)
--- NOTE | 2018-10-28 11:37 | NM ---
EXAM DATE: 10/28/2018 11:25 AM EST AGE/SEX: 73 years / Female INDICATIONS:Angina. . Substernal chest pain. CLINICAL DATA: This is the patient's initial encounter. Patient reports that signs and symptoms have been present for 1 day and indicates a pain score of 3/10. MEDICAL/SURGICAL HISTORY: Gastroesophageal reflux disease. Chronic obstructive pulmonary disea se. Hysterectomy. Mastectomy, bilateral. COMPARISON: No prior exams available for comparison. DOSE: 8.7 mCi Tc 99m Myoview at rest 25.4 mCi [id number] at rest 0.4 mg Lexiscan STRESS SYMPTOMS: Dyspnea. EJECTION FRACTION: >70 % TECHNIQUE: The patient underwent pharmacologic stress with infusion of prescribed dose. Continuous ECG tracing was monitored during stress. Gated SPECT imaging was performed after stress and conventi onal SPECT imaging was performed at rest. The examination was performed on a SPECT/CT scanner, both attenuation and non-corrected datasets were reviewed. FINDINGS: Distribution: The maximum perfused segment at stress is in the septal wall. Perfusion Study: The pattern of perfusion at stress is within normal limits. Gated Study: There are intact wall motion and wall thickening without hypokinetic or dyskinetic segm ents. The ejection fraction is calculated at >70%. RISK CATEGORY: Low (<1% Annual Motality Rate) CONCLUSION: Negative examination. Electronically signed by: Jarrett Dotson MD 10/28/2018 11:36 AM EST
--- NOTE | 2018-10-28 11:56 | P.PNIM ---
Subjective Interval history: pt no longer having any chest pain denies any SOB or palpitations Physical Exam Vital signs: Last Vital Signs Temp 97.5 F L 10/28/18 08:16 Pulse 71 10/28/18 08:16 Resp 18 10/28/18 08:16 BP 133/60 10/28/18 08:16 Pulse Ox 91 L 10/28/18 08:16 Narrative: GENERAL: NAD, AAOx3 SKIN: Warm and dry. CARDIO: Regular. RESP: CTA bilaterally. No accessory muscle use. ABD: +BS, soft, non-tender, nondistended. EXT: No cyanosis, or edema. Results Labs CBC & Chem 7: 10/28/18 03:49 10/27/18 17:35 Imaging Chest X-Ray 10/27/18 15:26 CONCLUSION: Stable chest appearance with no definite acute disease Gallbladder Ultrasound 10/27/18 15:26 CONCLUSION: 1. Cholelithiasis without definitive sonographic evidence for acute cholecystitis. 2. Nonspecific marginal pancreatic duct size. Abdomen/Pelvis CT 10/27/18 16:32 CONCLUSION: 1. Atherosclerotic changes in the aorta with dilatation and calcification. There is no focal aneurysm. 2. Moderate size apparent duodenal diverticulum containing an area of high density material. 3. Unremarkable gallbladder. 4. Moderate size retrocardiac hiatal hernia. 5. Grade 1 anterior spondylolisthesis of L4 on L5. Myocardial Perfusion Scan Nuc Med 10/28/18 00:00 CONCLUSION: Negative examination. Assessment and Plan Assessment (1) Troponin level elevated: Code(s): R74.8 - Abnormal levels of other serum enzymes Status: Acute (2) COPD (chronic obstructive pulmonary disease): Code(s): J44.9 - Chronic obstructive pulmonary disease, unspecified Status: Acute (3) Hypercholesterolemia: Code(s): E78.00 - Pure hypercholesterolemia, unspecified Status: Chronic (4) GERD (gastroesophageal reflux disease): Code(s): K21.9 - Gastro-esophageal reflux disease without esophagitis Status: Chronic Plan Lower chest/Epigastric pain Elevated Troponin/Prinzmetal angina Hx of mild nonobstructive CAD by [facility] 2015 HLD with statin intolerance GERD - Pt is a 73-year-old female with mild nonobstructive CAD, hyperlipidemia, and GERD who presented to the ED on 10/27/18 with complaints of epigastric abdominal pain/lower chest pain. She has had short episodes of Abd/chest cramping off and on since the s and she feels these episodes seem to be brought on by the cold. The patient states she had a similar episode 3 years ago and they thought it was cardiac as she had elevated troponins at the time, she had a cardiac catheterization in Oct 2015 which was basically negative ( mild dz 20-30% in RCA). - In the ED she had a negative GB US - CT Abd/pelvis (10/27): 1. Atherosclerotic changes in the aorta with dilatation and calcification. There is no focal aneurysm. 2. Moderate size apparent duodenal diverticulum containing an area of high density material. 3. Unremarkable gallbladder. 4. Moderate size retrocardiac hiatal hernia. 5. Grade 1 anterior spondylolisthesis of L4 on L5. - In the ED her troponin was increased at 2.3 and her BP was quite high on arrival with SBPs in 200s. Her BP has since normalized - Cardiology was consulted - Pt underwent Lexiscan this morning which was negative. - Pt was started on Norvasc 2.5mg and Imdur 30mg daily and these will be continued at discharge - Cont. PPI - Avoid NSAIDs, stop the Diclofenac - Pt is to followup with Dr King in 1 week - Pt is to followup with Dr Huna Hill in 2 weeks _ (1) GERD (gastroesophageal reflux disease) Qualifiers: Esophagitis presence:
[2018-10-28 12:42] LABS: Troponin I 0.82 ng/mL (0.02-0.05)
[2018-10-28 12:54] LABS: CKMB Percent 2.4 % (0.0-4.0); Creatine Kinase MB 7.2 ng/mL (0.5-3.6)
--- NOTE | 2018-10-28 13:39 | ECG ---
Date Performed: 10/28/2018 Time Performed: 00:27:20 PTAGE: 73 years EKG: Sinus rhythm . Septal T wave changes are nonspecific Borderline ECG Since the PREVIOUS TRACING , no significant change noted PREVIOUS TRACING DOCTOR: Christian Ferrara Interpretating Date/Time 10/28/2018 13:37:56
--- NOTE | 2018-10-28 13:39 | ECG ---
Date Performed: 10/28/2018 Time Performed: 08:08:00 PTAGE: 73 years EKG: Sinus rhythm NORMAL ECG Since the PREVIOUS TRACING , no significant change noted PREVIOUS TRACIN10/27/2018 21.50 DOCTOR: Christian Ferrara Interpretating Date/Time 10/28/2018 13:37:44
--- NOTE | 2018-10-28 13:40 | ECG ---
Date Performed: 10/27/2018 Time Performed: 21:50:58 PTAGE: 73 years EKG: Sinus rhythm NORMAL ECG Since the PREVIOUS TRACING , no significant change noted PREVIOUS TRACIN10/27/2018 19.19 DOCTOR: Christian Ferrara Interpretating Date/Time 10/28/2018 13:38:07
--- NOTE | 2018-10-28 15:21 | ECG ---
Date Performed: 10/27/2018 Time Performed: 19:19:12 PTAGE: 73 years EKG: Sinus rhythm When compared to previous tracing, voltage has increased. NORMAL ECG PREVIOUS TRACING : 11/17/2015 23.37.41 DOCTOR: Christian Ferrara Interpretating Date/Time 10/28/2018 15:20:29
[2018-10-28] MEDS ORDERED: Acetaminophen 325 MG Tablet PO ONE (16:00)
[2018-10-28] MEDS ORDERED: Aspirin 325 MG Tablet PO SCH (21:20)
== END 2018-10-28 18:59 | disposition home or self-care (01) ==
LOC: NEPE 14:56 → INTOOBSV 20:07 → NEDA 20:07 → N04 22:02
PROVIDERS: ADMIT Hospitalist; ATTEND Hospitalist
DX: E78.00 Pure hypercholesterolemia, unspecified; K57.10 Diverticulosis of small intestine without perforation or abscess without bleeding; J44.9 Chronic obstructive pulmonary disease, unspecified; K80.20 Calculus of gallbladder without cholecystitis without obstruction; I70.0 Atherosclerosis of aorta; F17.210 Nicotine dependence, cigarettes, uncomplicated; Z88.8 Allergy status to other drugs, medicaments and biological substances; M19.90 Unspecified osteoarthritis, unspecified site; N60.19 Diffuse cystic mastopathy of unspecified breast; Z90.710 Acquired absence of both cervix and uterus; I25.10 Atherosclerotic heart disease of native coronary artery without angina pectoris; F32.9 Major depressive disorder, single episode, unspecified; K21.0 Gastro-esophageal reflux disease with esophagitis; E78.5 Hyperlipidemia, unspecified; T46.1X5A Adverse effect of calcium-channel blockers, initial encounter; M43.16 Spondylolisthesis, lumbar region; K44.9 Diaphragmatic hernia without obstruction or gangrene; Z79.899 Other long term (current) drug therapy; Z90.13 Acquired absence of bilateral breasts and nipples